=== PATIENT | female | born 1980 | race Caucasian/White ===

== ENCOUNTER → 2017-05-31 | Outpatient (CLI) | payer OTHER | LOC: BMCIMAGING 14:48 | PROVIDERS: ATTEND Family Medicine | DX: R10.2 Pelvic and perineal pain (principal); N83.202 Unspecified ovarian cyst, left side; T83.32XA Displacement of intrauterine contraceptive device, initial encounter ==

== ENCOUNTER → 2017-06-13 | Outpatient (CLI) | payer OTHER | LOC: BMCIMAGING 09:46 | PROVIDERS: ATTEND Family Medicine | DX: S89.92XA Unspecified injury of left lower leg, initial encounter (principal); S99.912A Unspecified injury of left ankle, initial encounter; S69.91XA Unspecified injury of right wrist, hand and finger(s), initial encounter ==

== ENCOUNTER 2017-06-19 22:13 | Emergency (ER) | payer OTHER ==
[2017-06-19 22:21] VITALS: RESP 16; TEMP 98.4
--- NOTE | 2017-06-19 23:27 | EDPHY ---
H & P Stated Complaint: c/o pain radiating from L foot into L calf, concerned she of DVT, hx same Time Seen by Provider: 06/19/17 22:32 HPI/ROS: CHIEF COMPLAINT: Concerns over DVT HISTORY OF PRESENT ILLNESS: 36-year-old female prior history of left lower extremity DVT, complaining of 3 days of left calf cramping sensation with antecedent skateboarding injury where she impacted her left dorsal foot. This was a prior mechanism to her previous DVT when she was placed in a [place] boot developed a DVT in her left calf. She denies underlying osseous pain to her foot or ankle or tibia or fibula. Denies chest pain or dyspnea. Denies paresthesia. PRIMARY CARE PROVIDER: Dr. Mekhi Pulliam REVIEW OF SYSTEMS: A ten point review of systems was performed and is negative with the exception of the items mentioned in the HPI PHYSICAL EXAM (Prior to examination, patient consented to physical exam, hands were washed and my usual and customary physical exam procedures followed) 1) GENERAL: Well-developed, well-nourished, alert and oriented. Appears to be in no acute distress. 2) HEAD: Normocephalic 3) HEENT: sclera anicteric 4) LUNGS: Breathing comfortably. 5) SKIN: there is a granulating abrasion to her left dorsal foot with no signs of infection no fetid odor no lymphangitic streaking. 6) MUSCULOSKELETAL: no asymmetrical soft tissue swelling. Negative Homans. No palpable cord. DP PT pulses present and brisk. Capillary refill is brisk bilaterally. Soft compartments 7) NEUROLOGIC: Full sensation. DIFFERENTIAL DIAGNOSIS: in no particular include but limited to compartment syndrome, DVT, superficial venous thrombus - Medical/Surgical History Hx Asthma: No Hx Chronic Respiratory Disease: No Hx Diabetes: No Hx Cardiac Disease: No Hx Renal Disease: No Hx Cirrhosis: No Hx Alcoholism: No Hx HIV/AIDS: No Hx Splenectomy or Spleen Trauma: No Other PMH: DVT, scoriatic RA, hernia surg - Social History Smoking Status: Current some day smoker Constitutional: Initial Vital Signs Temperature (C) 36.9 C 06/19/17 22:16 Heart Rate 84 06/19/17 22:16 Respiratory Rate 16 06/19/17 22:16 Blood Pressure 139/91 H 06/19/17 22:16 O2 Sat (%) 98 06/19/17 22:16 O2 Delivery Mode Room Air Allergies/Adverse Reactions: diphenhydramine [From Benadryl] Allergy (Verified 06/19/17 22:22) fructose Allergy (Verified 06/19/17 22:22) Penicillins Allergy (Verified 06/19/17 22:22) topical abx ointment Allergy (Uncoded 06/19/17 22:22) Home Medications: Medication Instructions Recorded Hydroxychloroquine Sulfate 200 mg PO 08/16/13 [Plaquenil 200 mg (RX)] Rabeprazole Sodium [Aciphex] 20 mg PO DAILY 08/16/13 ALPRAZolam 06/19/17 Celebrex 06/19/17 [place] 5/325 (*) 06/19/17 Remicade Inj 100 mg (*) 06/19/17 Medical Decision Making - Diagnostics Imaging Results: Imaging Impressions Extremity Venous Study 06/19/17 22:32 Impression: 1. Superficial thrombophlebitis involving the lesser saphenous vein in the calf. 2. No deep venous thrombosis. Findings discussed with Emergency Department physician anatomic pathology assistant, Julián Rainey at 06/19/2017 23:21. ED Course/Re-evaluation: Patient was re-evaluated with serial examinations. Discussed her imaging results showing superficial thrombophlebitis no evidence of deep vein thrombus. We discussed usual customary treatment for this. Plan will be discharge. She is neurovascularly intact. No evidence of compartment syndrome. No evidence of necrotizing fasciitis or infection. Usual and customary venous thrombophlebitis treatment discussed with patient. She feels comfortable being discharged. Departure - Departure Disposition: Home, Routine, Self-Care Clinical Impression: Superficial thrombophlebitis Qualifiers: Superficial thrombophlebitis-Involved body area: lower extremity Laterality: left Qualified Code(s): I80.02 - Phlebitis and thrombophlebitis of superficial vessels of left lower extremity Condition: Good Instructions: Superficial Thrombophlebitis (ED) Additional Instructions: Apply warm compresses to the area, keep the area elevated. Referrals: Mekhi Pulliam MD [Primary Care Provider] - 2-3 days, call for appt.
[2017-06-19 23:52] VITALS: BP 130/87; PULSE 81; O2SAT 97
== END 2017-06-19 23:50 | disposition home or self-care (01) ==
DX: I80.8 Phlebitis and thrombophlebitis of other sites (principal); F17.200 Nicotine dependence, unspecified, uncomplicated

== ENCOUNTER → 2017-06-26 | Outpatient (CLI) | payer OTHER | LOC: FIMAGING 18:05 | PROVIDERS: ATTEND Internal Medicine | DX: Z86.718 Personal history of other venous thrombosis and embolism (principal) ==

== ENCOUNTER → 2017-06-28 | Outpatient (CLI) | payer OTHER | LOC: BMCIMAGING 12:55 | PROVIDERS: ATTEND Obstetrics & Gynecology | DX: R10.2 Pelvic and perineal pain (principal); N83.201 Unspecified ovarian cyst, right side ==

== ENCOUNTER → 2017-07-03 | Outpatient (CLI) | payer OTHER | LOC: BMCIMAGING 11:03 | PROVIDERS: ATTEND Family Medicine | DX: M53.3 Sacrococcygeal disorders, not elsewhere classified (principal) ==

== ENCOUNTER 2017-07-31 15:24 | Emergency (ER) | payer OTHER ==
[2017-07-31 15:42] VITALS: BP 142/105; PULSE 85; RESP 16; O2SAT 97
[2017-07-31] MEDS ORDERED: CYCLOBENZAPRINE 10 MG TAB PO ONE (15:56)
--- NOTE | 2017-07-31 16:00 | EDPHY ---
H & P Stated Complaint: fall Time Seen by Provider: 07/31/17 15:57 HPI/ROS: HPI: This is a 36-year-old female who presents with Chief Complaint: Head injury Location: Right evangelical, right jaw, anterior neck Quality: Pain Duration: Prior to arrival Signs and Symptoms: no LOC, + mild evangelical headache, No bleeding, no radiation, no numbness, no weakness, no tingling, no incontinence, no decreased range of motion, + pain with swallowing Timing: Acute Severity: Moderate Context: Patient reports that she was wearing head piece for virtual reality playing a video game sitting down in a chair when she lost balance and fell forward hitting the right side of her head and anterior neck on the desk. She bit the right side of her tongue; no bleeding. Denies loss of consciousness. Modifying Factors: Has not taken any [id number] pain medications Comment: ROS: Constitutional: No fever, no chills, no weight loss Eyes: No blurred vision Respiratory: No shortness of breath, no cough Cardiovascular: No chest pain Gastrointestinal: No nausea, no vomiting no diarrhea Genitourinary: No dysuria Extremities: No myalgias Neurologic: No weakness, no numbness Skin: No rashes Hematologic: No bruising, no bleeding MEDICAL HISTORY: Rheumatoid arthritis Source: Patient, Family Exam Limitations: No limitations - Personal History LMP (Females 10-55): Unknown Current Tetanus Diphtheria and Acellular Pertussis (TDAP): Yes - Medical/Surgical History Hx Asthma: No Hx Chronic Respiratory Disease: No Hx Diabetes: No Hx Cardiac Disease: No Hx Renal Disease: No Hx Cirrhosis: No Hx Alcoholism: No Hx HIV/AIDS: No Hx Splenectomy or Spleen Trauma: No Other PMH: DVT, scoriatic RA, hernia surg - Social History Smoking Status: Current some day smoker - Physical Exam Exam: CONSTITUTIONAL: Well-appearing adult white female, talkative, slightly anxious , at bedside awake and alert, no obvious distress HEENT: Atraumatic and normocephalic, PERRL, EOMI. No periorbital ecchymosis. Tympanic membranes clear; no rupture. Oropharynx clear, bruising noted to the right lateral tongue; no laceration. No dental loosening. No Dental cracks. Tenderness to palpation TMJ. Small area of ecchymosis on right cheek bone. Able to open mouth fully; able to place the finger widths within mouth. No malocclusion. no exudate and moist pink mucosa. Airway patent. NECK: Supple; full range of motion of flexion/extension/bilateral rotation. No subcutaneous emphysema. Mild anterior tenderness to palpation. No lymphadenopathy. No meningismus. Cardiovascular: Normal S1/S2, regular rate, regular rhythm, without murmur rub or gallop. PULMONARY/CHEST: Symmetrical and nontender. No subcutaneous emphysema. No crepitus. Clear to auscultation bilaterally Good air movement. No accessory muscle usage. ABDOMEN: Soft, nondistended, nontender, no rebound, no guarding, no peritoneal signs, no masses or organomegaly. No CVAT. EXTREMITIES: 2/2 pulses, no deformities, no clubbing, no cyanosis or edema. NEUROLOGICAL: no focal neuro deficits. GCS 15. Speech is clear. SKIN: Warm and dry, no erythema. no rash. Good capillary refill. Constitutional: Initial Vital Signs Heart Rate 85 07/31/17 15:40 Respiratory Rate 16 07/31/17 15:40 Blood Pressure 142/105 H 07/31/17 15:40 O2 Sat (%) 97 07/31/17 15:40 O2 Delivery Mode Room Air Allergies/Adverse Reactions: diphenhydramine [From Benadryl] Allergy (Verified 06/19/17 22:22) fructose Allergy (Verified 06/19/17 22:22) Penicillins Allergy (Verified 06/19/17 22:22) topical abx ointment Allergy (Uncoded 06/19/17 22:22) Home Medications: Medication Instructions Recorded Hydroxychloroquine Sulfate 200 mg PO 08/16/13 [Plaquenil 200 mg (RX)] Rabeprazole Sodium [Aciphex] 20 mg PO DAILY 08/16/13 ALPRAZolam 06/19/17 Celebrex 06/19/17 [place] 5/325 (*) 06/19/17 Remicade Inj 100 mg (*) 06/19/17 Cyclobenzaprine [Flexeril 10 MG 10 mg PO TID PRN #15 tab 07/31/17 (*)] Medical Decision Making ED Course/Re-evaluation: No loss of consciousness; low impact; no neurological symptoms. Discussed extensively with patient and regarding low risk for acute intracranial process. Decision was made to not proceed with Head CT scan. Also offered CT cervical scan and CT maxillofacial scan. After explaining the risks/benefits/adverse effects, patient/ have decided not to proceed. advised symptomatic care. Patient already has Celebrex and Percocet at home. Will give Rx for Flexeril per request. She is drinking coffee during examination without difficulty. Differential Diagnosis: Head injury including but not limited to concussion, skull fracture, intraparenchymal contusion, subarachnoid, subdural and epidural hematoma. - Data Points Medications Given: Discontinued Medications Cyclobenzaprine HCl (Flexeril) 10 mg PO EDNOW ONE Stop: 07/31/17 15:57 Last Admin: 07/31/17 16:01 Dose: 10 mg Departure - Departure Disposition: Home, Routine, Self-Care Clinical Impression: Contusion of scalp, initial encounter Contusion, cheek Qualifiers: Encounter type: initial encounter Qualified Code(s): S00.83XA - Contusion of other part of head, initial encounter Tongue injury Qualifiers: Encounter type: initial encounter Qualified Code(s): S09.93XA - Unspecified injury of face, initial encounter Condition: Good Instructions: Concussion (ED), Post Concussion Syndrome (ED) Additional Instructions: Please monitor for signs of worsening neurological symptoms. Rest for the next few days and avoid physical contact sports. Follow up with primary care provider in 1 week for re-evaluation. Return to the ER immediately if worsening of symptoms. Referrals: Elvia Buckley MD [Primary Care Provider] - 5-7 days, call for appt. Prescriptions: Cyclobenzaprine [Flexeril 10 MG (*)] 10 mg PO TID PRN #15 tab PRN Reason: Spasms
== END 2017-07-31 16:12 | disposition home or self-care (01) ==
DX: S00.03XA Contusion of scalp, initial encounter (principal); S00.83XA Contusion of other part of head, initial encounter; S09.93XA Unspecified injury of face, initial encounter; F17.200 Nicotine dependence, unspecified, uncomplicated; W07.XXXA Fall from chair, initial encounter

== ENCOUNTER → 2017-08-07 | Outpatient (CLI) | payer OTHER | LOC: FIMAGING 12:05 | PROVIDERS: ATTEND Family Medicine | DX: S09.93XA Unspecified injury of face, initial encounter (principal); M50.31 Other cervical disc degeneration, high cervical region ==

== ENCOUNTER → 2017-10-06 | Outpatient (CLI) | payer OTHER | LOC: FIMAGING 11:32 | PROVIDERS: ATTEND Family Medicine | DX: N93.9 Abnormal uterine and vaginal bleeding, unspecified (principal) ==

== ENCOUNTER 2017-10-20 19:17 | Emergency (ER) | payer OTHER ==
[2017-10-20 19:31] VITALS: RESP 16
--- NOTE | 2017-10-20 20:05 | EDPHY ---
H & P Time Seen by Provider: 10/20/17 19:21 HPI/ROS: CHIEF COMPLAINT: Bilateral leg itching HISTORY OF PRESENT ILLNESS: 36-year-old female with a history of psoriatic arthritis and prior DVT presents with bilateral leg itching. 6 week history of left lower extremity itching, which is the usual presentation for her DVTs. She also has new itching in the right lower extremity. She is concerned about DVT, especially since her physician did a D-dimer today that was slightly elevated at 0.70. She also has left lower quadrant pain for the past 6-8 weeks. The pain increases with straining and with movements. She had a pelvic ultrasound performed at [facility] that was unremarkable. No other associated symptoms. She has not seen her GI doctor yet. REVIEW OF SYSTEMS: Constitutional: No fever, no chills Eyes: No visual changes ENT: No sore throat Respiratory: No cough, no shortness of breath Cardiac: No chest pain Gastrointestinal: No nausea, no vomiting Genitourinary: No hematuria, no dysuria Musculoskeletal: No leg pain or swelling Skin: No rash Neurological: No headache, no numbness, no weakness Psychiatric: No depression Past Medical/Surgical History: Psoriatic arthritis DVT Social History: , no recent alcohol Smoking Status: Current some day smoker Physical Exam: General Appearance: Alert, pleasant Eyes: Pupils equal and round, no conjunctival pallor or injection ENT, Mouth: Mucous membranes moist Neck: Normal inspection Respiratory: Lungs are clear to auscultation Cardiovascular: Regular rate and rhythm Gastrointestinal: Abdomen is soft, left lower quadrant tenderness Neurological: A&O, nonfocal, normal gait Skin: Warm and dry, no rash Extremities: Nontender, no pedal edema Psychiatric: Mood and affect normal Constitutional: Initial Vital Signs Temperature (C) 36.5 C 10/20/17 19:27 Heart Rate 87 10/20/17 19:27 Respiratory Rate 16 10/20/17 19:27 Blood Pressure 113/78 10/20/17 19:27 O2 Sat (%) 97 10/20/17 19:27 O2 Delivery Mode Room Air Allergies/Adverse Reactions: diphenhydramine [From Benadryl] Allergy (Verified 10/20/17 19:25) fructose Allergy (Verified 10/20/17 19:25) Penicillins Allergy (Verified 10/20/17 19:25) topical abx ointment Allergy (Uncoded 10/20/17 19:25) Home Medications: Medication Instructions Recorded Hydroxychloroquine Sulfate 200 mg PO 08/16/13 [Plaquenil 200 mg (RX)] Rabeprazole Sodium [Aciphex] 20 mg PO DAILY 08/16/13 ALPRAZolam 06/19/17 Celebrex 06/19/17 [place] 5/325 (*) 06/19/17 Remicade Inj 100 mg (*) 06/19/17 Cyclobenzaprine [Flexeril 10 MG 10 mg PO TID PRN #15 tab 07/31/17 (*)] Medical Decision Making - Diagnostics Imaging Results: Imaging Impressions Extremity Venous Study 10/20/17 20:01 Impression: No evidence of deep vein thrombosis in either lower extremity. Results called and discussed with KAILYN ONTIVEROS M.D. on 10/20/2017 at 21:28 ED Course/Re-evaluation: Ultrasound results discussed with the patient and her . We discussed the left lower quadrant pain. I do not feel that CT imaging is indicated at this point. Her white blood cell count is normal, abdominal exam is benign and she had a recent pelvic ultrasound was normal. She will follow up with her graphic engineer for further evaluation. Differential Diagnosis: Differential diagnosis includes though it is not limited to cellulitis, DVT, neurovascular compromise. Differential diagnosis for abdominal pain includes though it is not limited to appendicitis, cholecystitis, diverticulitis, pyelonephritis, bowel perforation, small bowel obstruction. - Data Points Laboratory Results: Laboratory Results 10/20/17 21:05 10/20/17 21:05 10/20/17 10/20/17 10/20/17 21:10 21:05 21:05 WBC RBC Hgb Hct MCV MCH MCHC RDW Plt Count MPV Neut % (Auto) Lymph % (Auto) [place] % (Auto) Eos % (Auto) Baso % (Auto) Nucleat RBC Rel Count Absolute Neuts (auto) Absolute Lymphs (auto) Absolute Monos (auto) Absolute Eos (auto) Absolute Basos (auto) Absolute Nucleated RBC Immature Gran % Immature Gran # Sodium 136 mEq/L mEq/L (134-144) Potassium 3.7 mEq/L mEq/L (3.5-5.2) Chloride 104 mEq/L mEq/L (97-110) Carbon Dioxide 21 mEq/l L mEq/l (22-31) Anion Gap 11 mEq/L mEq/L (8-16) BUN 17 mg/dL mg/dL (7-23) Creatinine 0.7 mg/dL mg/dL (0.6-1.0) Estimated GFR > 60 Glucose 81 mg/dL mg/dL (70-100) Calcium 8.9 mg/dL mg/dL (8.5-10.4) Total Bilirubin 0.6 mg/dL mg/dL (0.1-1.4) Conjugated Bilirubin 0.1 mg/dL mg/dL (0.0-0.5) Unconjugated Bilirubin 0.5 mg/dL mg/dL (0.0-1.1) AST 29 IU/L IU/L (14-46) ALT 43 IU/L IU/L (9-52) Alkaline Phosphatase 41 IU/L IU/L (38-126) Total Protein 6.7 g/dL g/dL (6.3-8.2) Albumin 3.9 g/dL g/dL (3.5-5.0) Beta HCG, Qual NEGATIVE Urine Color YELLOW Urine Appearance CLEAR Urine pH 5.0 (5.0-7.5) Ur Specific [place] 1.029 (1.002-1.030) Urine Protein NEGATIVE (NEGATIVE) Urine Ketones 1+ H (NEGATIVE) Urine Blood NEGATIVE (NEGATIVE) Urine Nitrate NEGATIVE (NEGATIVE) Urine Bilirubin NEGATIVE (NEGATIVE) Urine Urobilinogen NEGATIVE EU EU (0.2-1.0) Ur Leukocyte Esterase NEGATIVE (NEGATIVE) Urine Glucose NEGATIVE (NEGATIVE) 10/20/17 21:05 WBC 8.24 10^3/uL 10^3/uL (3.80-9.50) RBC 3.92 10^6/uL L 10^6/uL (4.18-5.33) Hgb 13.4 g/dL g/dL (12.6-16.3) Hct 38.5 % % (38.0-47.0) MCV 98.2 fL fL (81.5-99.8) MCH 34.2 pg H pg (27.9-34.1) MCHC 34.8 g/dL g/dL (32.4-36.7) RDW 12.4 % % (11.5-15.2) Plt Count 175 10^3/uL 10^3/uL (150-400) MPV 10.5 fL fL (8.7-11.7) Neut % (Auto) 61.9 % % (39.3-74.2) Lymph % (Auto) 26.8 % % (15.0-45.0) [place] % (Auto) 8.1 % % (4.5-13.0) Eos % (Auto) 2.4 % % (0.6-7.6) Baso % (Auto) 0.6 % % (0.3-1.7) Nucleat RBC Rel Count 0.0 % % (0.0-0.2) Absolute Neuts (auto) 5.09 10^3/uL 10^3/uL (1.70-6.50) Absolute Lymphs (auto) 2.21 10^3/uL 10^3/uL (1.00-3.00) Absolute Monos (auto) 0.67 10^3/uL 10^3/uL (0.30-0.80) Absolute Eos (auto) 0.20 10^3/uL 10^3/uL (0.03-0.40) Absolute Basos (auto) 0.05 10^3/uL 10^3/uL (0.02-0.10) Absolute Nucleated RBC 0.00 10^3/uL 10^3/uL (0-0.01) Immature Gran % 0.2 % % (0.0-1.1) Immature Gran # 0.02 10^3/uL 10^3/uL (0.00-0.10) Sodium Potassium Chloride Carbon Dioxide Anion Gap BUN Creatinine Estimated GFR Glucose Calcium Total Bilirubin Conjugated Bilirubin Unconjugated Bilirubin AST ALT Alkaline Phosphatase Total Protein Albumin Beta HCG, Qual Urine Color Urine Appearance Urine pH Ur Specific [place] Urine Protein Urine Ketones Urine Blood Urine Nitrate Urine Bilirubin Urine Urobilinogen Ur Leukocyte Esterase Urine Glucose Departure - Departure Disposition: Home, Routine, Self-Care Clinical Impression: Pruritic condition Abdominal pain Qualifiers: Abdominal location: left lower quadrant Qualified Code(s): R10.32 - Left lower quadrant pain Condition: Good Instructions: Abdominal Pain (ED) Additional Instructions: You do not have a blood clot in either leg. Follow-up with your graphic engineer for further evaluation of the left-sided abdominal pain. Your white blood cell count is normal today. There is no sign of infection. Referrals: Elvia Buckley MD [Primary Care Provider] - As per Instructions
[2017-10-20 21:13] LABS: % IMMATURE GRANULYOCYTES 0.2 % (0.0-1.1); ABSOLUTE IMMATURE GRANULOCYTES 0.02 10^3/uL (0.00-0.10); ADD DIFF? NO; ADD MORPH? NO; ADD SCAN? NO; ATYPICAL LYMPHOCYTE FLAG 10 (0-99); FRAGMENT RBC FLAG 0 (0-99); HEMATOCRIT 38.5 % (38.0-47.0); HEMOGLOBIN 13.4 g/dL (12.6-16.3); LEFT SHIFT FLG 0 (0-99); LIPEMIA HEMOLYSIS FLAG 90 (0-99); MEAN CELL HEMOGLOBIN 34.2 pg (27.9-34.1); MEAN CELL HEMOGLOBIN CONCENTR. 34.8 g/dL (32.4-36.7); MEAN CELL VOLUME 98.2 fL (81.5-99.8); MEAN PLATELET VOLUME 10.5 fL (8.7-11.7); PLATELET CLUMPS FLAG 0 (0-99); PLATELET COUNT 175 10^3/uL (150-400); RED BLOOD CELL COUNT 3.92 10^6/uL (4.18-5.33); RED CELL DISTRIBUTION WIDTH 12.4 % (11.5-15.2)
[2017-10-20 21:27] LABS: ALANINE AMINOTRANSFERASE 43 IU/L (9-52); ALBUMIN 3.9 g/dL (3.5-5.0); ALKALINE PHOSPHATASE 41 IU/L (38-126); ANION GAP 11 mEq/L (8-16); ASPARTATE AMINOTRANSFERASE 29 IU/L (14-46); BILIRUBIN,TOTAL 0.6 mg/dL (0.1-1.4); BILIRUBIN-CONJUGATED 0.1 mg/dL (0.0-0.5); BILIRUBIN-UNCONJUGATED 0.5 mg/dL (0.0-1.1); CALCIUM 8.9 mg/dL (8.5-10.4); CARBON DIOXIDE 21 mEq/l (22-31); CHLORIDE 104 mEq/L (97-110); CREATININE 0.7 mg/dL (0.6-1.0); GLOMERULAR FILTRATION RATE > 60; GLUCOSE 81 mg/dL (70-100); POTASSIUM 3.7 mEq/L (3.5-5.2); SODIUM 136 mEq/L (134-144); TOTAL PROTEIN 6.7 g/dL (6.3-8.2)
[2017-10-20 21:29] LABS: COLOR YELLOW; LEUKOCYTE ESTERASE,URINE NEGATIVE (NEGATIVE); NITRITE,URINE NEGATIVE (NEGATIVE)
[2017-10-20 22:02] VITALS: BP 121/70; PULSE 67; TEMP 96.8; O2SAT 99
== END 2017-10-20 22:02 | disposition home or self-care (01) ==
DX: L29.9 Pruritus, unspecified (principal); R10.32 Left lower quadrant pain; F17.200 Nicotine dependence, unspecified, uncomplicated

== ENCOUNTER → 2018-06-13 | Outpatient (CLI) | payer OTHER | LOC: BMCIMAGING 09:19 | PROVIDERS: ATTEND Family Medicine | DX: I88.0 Nonspecific mesenteric lymphadenitis (principal) ==

== ENCOUNTER 2018-09-11 21:42 | Emergency (ER) | payer OTHER ==
--- NOTE | 2018-09-11 22:24 | EDPHY ---
H & P Stated Complaint: "blood flow is slow" alot of left leg itching past hx of dvt Time Seen by Provider: 09/11/18 22:24 HPI/ROS: HPI CHIEF COMPLAINT: Possible left lower extremity DVT. Left calf pain. HISTORY OF PRESENT ILLNESS: 37-year-old female, she has a history of DVT 5 years ago after her left leg was in a walking boot and she was on control. Since then she has not had a DVT but has had superficial clots in the past. She presents emergency room stating that the left calf is been bothering her. No significant swelling. Mild pain. Also complains of left calf itching. She denies chest pain or shortness of breath, denies pleuritic pain, denies fever, denies productive cough. Denies hemoptysis. She does not have a clotting disorder. Past Medical History: Rheumatoid arthritis Past Surgical History: No recent surgical history Social History: Denies drugs alcohol tobacco. Family History: Noncontributory ROS REVIEW OF SYSTEMS: 10 Systems were reviewed and negative with the exception of the elements mentioned in the history of present illness. Exam Constitutional triage nursing summary reviewed, vital signs reviewed, awake/ alert. Eyes normal conjunctivae and sclera, EOMI, PERRLA. HENT normal inspection, atraumatic, moist mucus membranes, no epistaxis, neck supple/ no meningismus, no raccoon eyes. Respiratory clear to auscultation bilaterally, normal breath sounds, no respiratory distress, no wheezing. Cardiovascular rate normal, regular rhythm, no murmur, no edema, distal pulses normal. Gastrointestinal soft, non-tender, no rebound, no guarding, normal bowel sounds, no distension, no pulsatile mass. Genitourinary no CVA tenderness. Musculoskeletal left leg: Neurovascular intact good distal pulse, good cap refill, no significant swelling noted. Calf is soft nontender. no midline vertebral tenderness, full range of motion, no calf swelling, no tenderness of extremities, no meningismus, good pulses, neurovascularly intact. Skin pink, warm, & dry, no rash, skin atraumatic. Neurologic awake, alert and oriented x 3, AAOx3, moves all 4 extremities equally, motor intact, sensory intact, CN II-XII intact, normal cerebellar, normal vision, normal speech. Psychiatric normal mood/affect. Heme/Lymph/Immune no lymphadenopathy. Differential Diagnosis: Includes but is not limited to in a particular order muscle spasm, calf spasm, DVT. Superficial clot. Medical Decision Making: Plan for this patient ultrasound left lower extremity rule out DVT. Re-evaluation: Ultrasound: Left lower extremity no evidence of DVT. No evidence superficial clot either. Updated patient she is comfortable this plan Comfortable discharge. Return precautions discussed return emergency room worsening pain, swelling. She understands. Source: Patient - Personal History LMP (Females 10-55): 8-14 Days Ago Current Tetanus/Diphtheria Vaccine: Yes Current Tetanus Diphtheria and Acellular Pertussis (TDAP): Yes - Medical/Surgical History Hx Asthma: No Hx Chronic Respiratory Disease: No Hx Diabetes: No Hx Cardiac Disease: No Hx Renal Disease: No Hx Cirrhosis: No Hx Alcoholism: No Hx HIV/AIDS: No Hx Splenectomy or Spleen Trauma: No Other PMH: DVT, scoriatic RA, hernia surg - Social History Smoking Status: Current some day smoker Constitutional: Initial Vital Signs Temperature (C) 36.8 C 09/11/18 21:45 Heart Rate 96 09/11/18 21:45 Respiratory Rate 16 09/11/18 21:45 Blood Pressure 116/82 H 09/11/18 21:45 O2 Sat (%) 98 09/11/18 21:45 O2 Delivery Mode Room Air Allergies/Adverse Reactions: diphenhydramine [From Benadryl] Allergy (Verified 10/20/17 19:25) fructose Allergy (Verified 10/20/17 19:25) Penicillins Allergy (Verified 10/20/17 19:25) topical abx ointment Allergy (Uncoded 10/20/17 19:25) Home Medications: Medication Instructions Recorded Hydroxychloroquine Sulfate 200 mg PO 08/16/13 [Plaquenil 200 mg (RX)] Rabeprazole Sodium [Aciphex] 20 mg PO DAILY 08/16/13 ALPRAZolam 06/19/17 Celebrex 06/19/17 [place] 5/325 (*) 06/19/17 Remicade Inj 100 mg (*) 06/19/17 Cyclobenzaprine [Flexeril 10 MG 10 mg PO TID PRN #15 tab 07/31/17 (*)] Medical Decision Making - Diagnostics Imaging Results: Imaging Impressions Extremity Venous Study 09/11/18 22:27 Impression: No deep or superficial vein thrombosis in the left lower extremity. Departure - Departure Disposition: Home, Routine, Self-Care Clinical Impression: Calf pain Qualifiers: Laterality: left Qualified Code(s): M79.662 - Pain in left lower leg Condition: Good Instructions: Muscle Spasm (ED) Referrals: Elvia Buckley MD [Primary Care Provider] - As per Instructions
[2018-09-11 23:43] VITALS: BP 113/74
== END 2018-09-11 23:44 | disposition home or self-care (01) ==
DX: M79.662 Pain in left lower leg (principal); M06.9 Rheumatoid arthritis, unspecified; F17.200 Nicotine dependence, unspecified, uncomplicated; Z86.718 Personal history of other venous thrombosis and embolism

== ENCOUNTER → 2018-09-25 | Outpatient (CLI) | payer OTHER | LOC: FIMAGING 17:05 | PROVIDERS: ATTEND Internal Medicine Rheumatology | DX: M51.36 Other intervertebral disc degeneration, lumbar region (principal); M51.35 Other intervertebral disc degeneration, thoracolumbar region ==

== ENCOUNTER → 2019-04-08 | Outpatient (CLI) | payer OTHER | LOC: BMCIMAGING 13:13 | PROVIDERS: ATTEND Family Medicine | DX: J40 Bronchitis, not specified as acute or chronic (principal) ==

== ENCOUNTER 2019-05-10 14:29 | Emergency (ER) | payer OTHER | END 2019-05-10 19:31 | disposition home or self-care (01) ==